=== PATIENT | male | born 2000 | race Two or more races ===

== ENCOUNTER 2024-03-04 13:51 | Emergency (ER) | payer SELFPAY ==
[~2024-03-04] VITALS: Ht 177.8 cm; Wt 127.0 kg
[2024-03-04 14:02] VITALS: BP 142/92; PULSE 120; RESP 18; TEMP 98.3; O2SAT 99
== END 2024-03-04 15:58 | disposition home or self-care (01) ==
LOC: ER 13:51
DX: R25.2 Cramp and spasm (principal)
CPT/HCPCS: 93005; 99283